=== PATIENT | female | born 1970 | race Caucasian/White ===

== ENCOUNTER → 2016-08-31 | Outpatient (CLI) | payer BC | LOC: KOH-I 08-26 11:45 | DX: M51.34 Other intervertebral disc degeneration, thoracic region (principal); M54.16 Radiculopathy, lumbar region; M51.27 Other intervertebral disc displacement, lumbosacral region; M51.26 Other intervertebral disc displacement, lumbar region; M51.24 Other intervertebral disc displacement, thoracic region | CPT/HCPCS: 72146; 72148 ==

== ENCOUNTER → 2020-03-25 | Outpatient (CLI) | payer BC, OTHER ==
[~2020-03-25] MED LIST: DIAZEPAM10 MG PO; GABAPENTIN600 MG PO; GLUCOPHAGE500 MG PO; HYDROCHLOROTHIA25 MG PO; NORCO 10-325 T1 EACH PO; PROZAC20 MG PO; SYNTHROID50 MCG PO; ZESTRIL2.5 MG PO
== END ==
LOC: US 15:41
DX: R10.32 Left lower quadrant pain (principal); Z90.721 Acquired absence of ovaries, unilateral; Z90.710 Acquired absence of both cervix and uterus
CPT/HCPCS: 76830

== ENCOUNTER 2020-08-03 12:42 | Inpatient (IN) | payer BC, OTHER ==
[~2020-08-03] VITALS: Ht 175.3 cm; Wt 89.4 kg
[~2020-08-03 12:42] MED LIST changes: -DIAZEPAM10 MG PO
[2020-08-03 14:29] LABS: HEMOGLOBIN 14.6 gm/dl (12.3-15.3); RED BLOOD COUNT 4.68 M/UL (4.00-5.10); WHITE BLOOD COUNT 14.3 K/UL (4.5-11.0)
[2020-08-03 15:13] LABS: BUN/CREATININE RATIO 19 (0-10)
[2020-08-03] MEDS ORDERED: DIAZEPAM10 MG PO (22:57)
[2020-08-04 02:57] LABS: HEMOGLOBIN 12.7 gm/dl (12.3-15.3)
[2020-08-04 02:58] LABS: RED BLOOD COUNT 4.07 M/UL (4.00-5.10)
[2020-08-04 03:23] LABS: BUN/CREATININE RATIO 15 (0-10)
== END 2020-08-04 13:36 | disposition short-term general hospital (02) | DRG 175 ==
LOC: ER1 12:42 → CDU 20:15 → PROG CARE 20:15
PROVIDERS: Physician Assistant Medical; ADMIT Internal Medicine
PROC: B24BZZ4 Ultrasonography of Heart with Aorta, Transesophageal (ICD-10-PCS; principal; 2020-08-04)
DX: I26.99 Other pulmonary embolism without acute cor pulmonale (principal); J96.01 Acute respiratory failure with hypoxia; J15.9 Unspecified bacterial pneumonia; Z20.822 Contact with and (suspected) exposure to COVID-19; R65.10 Systemic inflammatory response syndrome (SIRS) of non-infectious origin without acute organ dysfunction; E87.1 Hypo-osmolality and hyponatremia; E87.6 Hypokalemia; E02 Subclinical iodine-deficiency hypothyroidism; E28.2 Polycystic ovarian syndrome; N30.90 Cystitis, unspecified without hematuria; I10 Essential (primary) hypertension; G62.9 Polyneuropathy, unspecified; F41.9 Anxiety disorder, unspecified; Z79.82 Long term (current) use of aspirin; Z90.710 Acquired absence of both cervix and uterus
CPT/HCPCS: ECHO; 36415; 36600; 71045; 80053; 81001; 82550; 82553; 82803; 83605; 83735; 83880; 84439; 84443; 84484; 85025; 85610; 85730; 87040; 93005; 93306; 93970; 94660; 94760; 96374; 96375; 96376; 99285; J0456; J0696; J1170; J1644; J2270; J2405; J3480; J7030; Q9967; U0002

== ENCOUNTER → 2020-08-09 | Outpatient (CLI) | payer BC, OTHER ==
[~2020-08-09] MED LIST changes: +DIAZEPAM10 MG PO
== END ==
LOC: EXRD 11:04
DX: I26.99 Other pulmonary embolism without acute cor pulmonale (principal)
CPT/HCPCS: 71046

== ENCOUNTER → 2020-09-11 | Outpatient (CLI) | payer BC, OTHER ==
[2020-09-11 19:19] LABS: BUN/CREATININE RATIO 18 (0-10)
[2020-09-13 09:12] LABS: VITAMIN D, 25-HYDROXY 26.6 ng/mL (30.0-100.0)
[2020-09-20 05:09] LABS: VITAMIN E(ALPHA TOCOPHEROL) 14.6 mg/L (7.0-25.1); VITAMIN E(GAMMA TOCOPHEROL) 1.6 mg/L (0.5-5.5)
== END ==
LOC: LAB 15:06
PROVIDERS: Internal Medicine
DX: D64.9 Anemia, unspecified (principal); I10 Essential (primary) hypertension; E55.9 Vitamin D deficiency, unspecified; E53.8 Deficiency of other specified B group vitamins; R68.89 Other general symptoms and signs
CPT/HCPCS: 80053; 82180; 82525; 82607; 82728; 82746; 83540; 83550; 84443; 84446; 84590; 84630

== ENCOUNTER → 2021-07-10 | Outpatient (CLI) | payer BC | LOC: LAB 10:02 | DX: R30.0 Dysuria (principal) | CPT/HCPCS: 81001; 87086 ==

== ENCOUNTER → 2021-07-22 | Outpatient (CLI) | payer BC | LOC: US 10:08 | DX: R05.9 Cough, unspecified (principal); R31.9 Hematuria, unspecified | CPT/HCPCS: 71046 ==

== ENCOUNTER → 2021-12-09 | Outpatient (CLI) | payer BC ==
[2021-12-09 18:19] LABS: BUN/CREATININE RATIO 23 (0-10)
[2021-12-11 07:11] LABS: CORTISOL 10.7 ug/dL (.); ESTRADIOL 48.2 pg/mL (.); PROGESTERONE 0.1 ng/mL (.); VITAMIN D, 25-HYDROXY 33.4 ng/mL (30.0-100.0)
[2021-12-11 12:15] LABS: INSULIN 13.1 uIU/mL (2.6-24.9)
== END ==
LOC: LAB 16:07
PROVIDERS: Nurse Practitioner
DX: R53.83 Other fatigue (principal)
CPT/HCPCS: 36415; 80048; 80061; 80076; 82533; 82607; 82670; 83036; 84144; 84439; 84443